=== PATIENT | female | born 1935 | race Caucasian/White ===

== ENCOUNTER 2023-04-17 19:48 | Inpatient (IN) | payer BC ==
[~2023-04-17] VITALS: Ht 154.9 cm; Wt 41.3 kg
[2023-04-17 22:44] LABS: BASOPHILS % (AUTO) 0.7 % (0.0-2.0); EOSINOPHILS # (AUTO) 0.1 K/uL (0.0-0.7); EOSINOPHILS % (AUTO) 1.8 % (0.0-6.0); HEMATOCRIT 30 % (33-45); HEMOGLOBIN 9.9 g/dL (11.5-14.8); LYMPHOCYTES # (AUTO) 1.2 K/uL (0.8-4.8); LYMPHOCYTES % (AUTO) 23.6 % (20.0-44.0); MEAN CORPUSCULAR HEMOGLOBIN 30 PG (26.0-33.0); MEAN CORPUSCULAR HGB CONC 33 g/dl (31.0-36.0); MEAN CORPUSCULAR VOLUME 89 fL (82-100); MONOCYTES # (AUTO) 0.8 K/uL (0.1-1.30); MONOCYTES % (AUTO) 14.4 % (2.0-12.0); NEUTROPHILS # (AUTO) 3.1 K/uL (1.8-8.9); NEUTROPHILS % (AUTO) 59.5 % (43.0-81.0); PLATELET COUNT (AUTO) 205 K/uL (150-450); RED BLOOD CELL COUNT(AUTO) 3.34 MIL/uL (4.0-5.2); RED CELL DISTRIBUTION WIDTH 15.4 % (11.5-15.0); WHITE BLOOD COUNT (AUTO) 5.2 K/uL (4.3-11.0)
[2023-04-17 22:52] LABS: CALCIUM, SERUM 9.2 mg/dL (8.5-10.1); CARBON DIOXIDE 26 mmol/L (21-32); CHLORIDE 102 mmol/L (98-107); GLUCOSE 100 mg/dL (74-106); POTASSIUM 3.9 mmol/L (3.5-5.1); SODIUM SERUM 138 mmol/L (136-145); UREA NITROGEN, BLOOD 41 mg/dL (7-18)
[2023-04-18] VITALS: BP 133/45; TEMP 98.8
[2023-04-18] MEDS ORDERED: IBAN150T16 PO (00:17)
[2023-04-18] MEDS ORDERED: ISOS30TA86 PO (00:17)
[2023-04-18] MEDS ORDERED: TELM40TA2 PO (00:17)
[2023-04-18] MEDS ORDERED: HYDR-4077 PO (00:17)
[2023-04-18] MEDS ORDERED: CARB1TAB21 PO (00:17)
[2023-04-18] MEDS ORDERED: DILT180C66 PO (00:17)
[2023-04-18] MEDS ORDERED: ANAS1TAB50 PO (00:17)
[2023-04-18] MEDS ORDERED: ACET-73 PO ×2 (00:17)
[2023-04-18] MEDS ORDERED: ATOR20TA PO (00:17)
[2023-04-18] MEDS ORDERED: MAGNESIUM HYDROXIDE 30 ML UDC PO PRN (01:00)
[2023-04-18] MEDS ORDERED: ONDANSETRON HCL/PF 4 MG/2 ML VIAL IVP PRN (01:00)
[2023-04-18] MEDS ORDERED: HYDROCODONE/APAP 5/325MG TABLET PO PRN (01:00)
[2023-04-18] MEDS ORDERED: TEMAZEPAM 15 MG CAPSULE PO PRN (01:00)
[2023-04-18] MEDS ORDERED: ACETAMINOPHEN 325 MG TABLET PO PRN (01:00)
[2023-04-18] MEDS ORDERED: Z GUARD REMEDY 4 OZ OINT TP PRN (01:00)
[2023-04-18] MEDS: ENOXAPARIN SODIUM 30 MG/0.3 ML DISP.SYRIN SQ SCH ×2 (01:00→21:51)
[2023-04-18] MEDS ORDERED: MAG HYDROX/AL HYDROX/SIMETH 30 ML UDC PO PRN (01:00)
[2023-04-18] MEDS ORDERED: ACETAMINOPHEN ES 500 MG TABLET PO PRN ×2 (01:30)
[2023-04-18] MEDS: IV NS 0.9% 1,000 ML IV PRN ×2 (01:45→13:37)
[2023-04-18 04:00] VITALS: BP 138/52; TEMP 98.7; O2SAT 96
[2023-04-18 08:00] VITALS: BP 175/60; TEMP 98.1; O2SAT 96
[2023-04-18] MEDS: PANTOPRAZOLE 40 MG VIAL IV SCH (10:16)
[2023-04-18] MEDS: hydrALAZINE HCL 50 MG TABLET PO SCH ×2 (10:16→21:53)
[2023-04-18] MEDS: DILTIAZEM HCL CD 180 MG PO SCH (10:16)
[2023-04-18] MEDS: CARBIDOPA/LEVODOPA 25/100 MG 1 UDTAB PO SCH ×3 (10:17→17:19)
[2023-04-18] MEDS: LOSARTAN POTASSIUM 50 MG TABLET PO SCH (10:17)
[2023-04-18] MEDS: ISOSORBIDE MONONITRATE (30MG) 30 MG TAB.SR.24H PO SCH (10:17)
[2023-04-18] MEDS: ANASTROZOLE 1 MG TABLET PO SCH (10:18)
[2023-04-18 16:00] VITALS: BP 152/64; TEMP 98.2
[2023-04-18 20:00] VITALS: BP 165/72; TEMP 97.7; O2SAT 96
[2023-04-18] MEDS: ATORVASTATIN 10 MG TABLET PO SCH (21:51)
[2023-04-19] MEDS: IV NS 0.9% 1,000 ML IV PRN ×2 (02:47→16:30)
[2023-04-19 04:00] VITALS: BP 170/86; TEMP 98.2; O2SAT 96
[2023-04-19] MEDS: hydrALAZINE HCL IV 20 MG VIAL IV PRN ×2 (06:09→16:26)
[2023-04-19 08:00] VITALS: BP 170/74; TEMP 98.2; O2SAT 96
[2023-04-19] MEDS: DILTIAZEM HCL CD 180 MG PO SCH (09:18)
[2023-04-19] MEDS: hydrALAZINE HCL 50 MG TABLET PO SCH ×2 (09:18→21:27)
[2023-04-19] MEDS: LOSARTAN POTASSIUM 50 MG TABLET PO SCH (09:18)
[2023-04-19] MEDS: ANASTROZOLE 1 MG TABLET PO SCH (09:18)
[2023-04-19] MEDS: CARBIDOPA/LEVODOPA 25/100 MG 1 UDTAB PO SCH ×3 (09:18→16:26)
[2023-04-19] MEDS: PANTOPRAZOLE 40 MG VIAL IV SCH (09:18)
[2023-04-19] MEDS: ISOSORBIDE MONONITRATE (30MG) 30 MG TAB.SR.24H PO SCH (09:19)
[2023-04-19 16:21] VITALS: BP 168/75; TEMP 97.2; O2SAT 96
[2023-04-19 20:00] VITALS: BP 178/97; TEMP 97.9; O2SAT 98
[2023-04-19] MEDS: ENOXAPARIN SODIUM 30 MG/0.3 ML DISP.SYRIN SQ SCH ×2 (21:00→21:25)
[2023-04-19] MEDS: ATORVASTATIN 10 MG TABLET PO SCH (21:27)
[2023-04-20 04:00] VITALS: BP 158/80; TEMP 97.9; O2SAT 98
[2023-04-20 08:00] VITALS: BP 176/91; TEMP 97.9; O2SAT 98
[2023-04-20] MEDS: CARBIDOPA/LEVODOPA 25/100 MG 1 UDTAB PO SCH ×3 (08:44→16:09)
[2023-04-20] MEDS: DILTIAZEM HCL CD 180 MG PO SCH (08:45)
[2023-04-20] MEDS: ISOSORBIDE MONONITRATE (30MG) 30 MG TAB.SR.24H PO SCH (08:45)
[2023-04-20] MEDS: PANTOPRAZOLE 40 MG/PACK PACK PO SCH (08:45)
[2023-04-20] MEDS: LOSARTAN POTASSIUM 50 MG TABLET PO SCH (08:46)
[2023-04-20] MEDS: hydrALAZINE HCL 50 MG TABLET PO SCH ×2 (08:46→21:29)
[2023-04-20] MEDS: ANASTROZOLE 1 MG TABLET PO SCH (08:50)
[2023-04-20] MEDS: IV NS 0.9% 1,000 ML IV PRN (15:58)
[2023-04-20 16:00] VITALS: BP 139/61; TEMP 97.9; O2SAT 98
[2023-04-20 17:24] LABS: BASOPHILS % (AUTO) 0.5 % (0.0-2.0); EOSINOPHILS # (AUTO) 0.1 K/uL (0.0-0.7); EOSINOPHILS % (AUTO) 1.2 % (0.0-6.0); HEMATOCRIT 30 % (33-45); HEMOGLOBIN 9.7 g/dL (11.5-14.8); LYMPHOCYTES # (AUTO) 0.8 K/uL (0.8-4.8); LYMPHOCYTES % (AUTO) 11.7 % (20.0-44.0); MEAN CORPUSCULAR HEMOGLOBIN 29 PG (26.0-33.0); MEAN CORPUSCULAR HGB CONC 33 g/dl (31.0-36.0); MEAN CORPUSCULAR VOLUME 89 fL (82-100); MONOCYTES # (AUTO) 0.8 K/uL (0.1-1.30); NEUTROPHILS # (AUTO) 5.4 K/uL (1.8-8.9); NEUTROPHILS % (AUTO) 75.6 % (43.0-81.0); PLATELET COUNT (AUTO) 260 K/uL (150-450); RED BLOOD CELL COUNT(AUTO) 3.32 MIL/uL (4.0-5.2); RED CELL DISTRIBUTION WIDTH 14.9 % (11.5-15.0); WHITE BLOOD COUNT (AUTO) 7.2 K/uL (4.3-11.0)
[2023-04-20 17:49] LABS: CALCIUM, SERUM 8.7 mg/dL (8.5-10.1); CARBON DIOXIDE 22 mmol/L (21-32); CHLORIDE 105 mmol/L (98-107); CREATININE 1.1 mg/dL (0.6-1.3); GLUCOSE 171 mg/dL (74-106); PHOSPHORUS 2.9 mg/dL (2.5-4.9); POTASSIUM 3.3 mmol/L (3.5-5.1); SODIUM SERUM 137 mmol/L (136-145); UREA NITROGEN, BLOOD 27 mg/dL (7-18)
[2023-04-20 20:00] VITALS: BP 160/88; TEMP 98.2; O2SAT 97
[2023-04-20] MEDS: ENOXAPARIN SODIUM 30 MG/0.3 ML DISP.SYRIN SQ SCH ×2 (21:00→21:30)
[2023-04-20] MEDS: ATORVASTATIN 10 MG TABLET PO SCH (21:28)
[2023-04-21 04:00] VITALS: BP 119/68; TEMP 98.8; O2SAT 94
[2023-04-21] MEDS: IV NS 0.9% 1,000 ML IV PRN (04:24)
[2023-04-21] MEDS: ISOSORBIDE MONONITRATE (30MG) 30 MG TAB.SR.24H PO SCH (08:16)
[2023-04-21] MEDS: hydrALAZINE HCL 50 MG TABLET PO SCH (08:17)
[2023-04-21] MEDS: LOSARTAN POTASSIUM 50 MG TABLET PO SCH (08:17)
[2023-04-21] MEDS: DILTIAZEM HCL CD 180 MG PO SCH (08:18)
[2023-04-21] MEDS: PANTOPRAZOLE 40 MG/PACK PACK PO SCH (08:18)
[2023-04-21] MEDS: CARBIDOPA/LEVODOPA 25/100 MG 1 UDTAB PO SCH ×2 (08:18→13:24)
[2023-04-21] MEDS: ANASTROZOLE 1 MG TABLET PO SCH (08:19)
[2023-04-21 09:09] VITALS: BP 151/77; TEMP 98.5; O2SAT 94
[2023-04-21] MEDS ORDERED: CLONIDINE HCL 0.1 MG TABLET PO PRN (09:30)
== END 2023-04-21 17:49 | DRG 177 ==
LOC: ER 20:04 → MEDSG1 23:24
PROVIDERS: ADMIT Nurse Practitioner Acute Care; ATTEND Internal Medicine
DX: U07.1 COVID-19 (principal); G93.41 Metabolic encephalopathy; N17.0 Acute kidney failure with tubular necrosis; R64 Cachexia; E44.0 Moderate protein-calorie malnutrition; Z68.1 Body mass index [BMI] 19.9 or less, adult; E86.0 Dehydration; Z86.73 Personal history of transient ischemic attack (TIA), and cerebral infarction without residual deficits; I10 Essential (primary) hypertension; Z95.2 Presence of prosthetic heart valve; K21.9 Gastro-esophageal reflux disease without esophagitis; M62.50 Muscle wasting and atrophy, not elsewhere classified, unspecified site; G20.A1 Parkinson's disease without dyskinesia, without mention of fluctuations; E78.5 Hyperlipidemia, unspecified; Z91.011 Allergy to milk products; D63.8 Anemia in other chronic diseases classified elsewhere; Z79.899 Other long term (current) drug therapy; I48.0 Paroxysmal atrial fibrillation; Z85.3 Personal history of malignant neoplasm of breast; Z98.890 Other specified postprocedural states
CPT/HCPCS: 36415; 71045-TC; 80048-TC; 83735-TC; 84100-TC; 85025-TC; 85378-TC; 86140-TC; 92526; 92611-TC; 97110-TC; 97116-TC; 97530-TC; A4223; C9113; C9803; G0378; J0360; J1650; J7030